=== PATIENT | female | born 1975 | race Caucasian/White ===

== ENCOUNTER → 2016-08-05 | Outpatient (CLI) | payer BC ==
--- NOTE | 2016-08-06 14:23 | MAMMOGRAPHY REPORT ---
BILATERAL DIGITAL SCREENING MAMMOGRAM TOMOSYNTHESIS WITH CAD: 08/05/2016 CLINICAL HISTORY: Routine screening. Patient has no complaints. BASELINE. TECHNIQUE: Breast tomosynthesis in addition to standard 2D mammography was performed. Current study was also evaluated with a Computer Aided Detection (CAD) system. COMPARISON: No prior exams were available for comparison. BREAST COMPOSITION: There are scattered areas of fibroglandular density in both breasts. FINDINGS: There is an oval partially circumscribed and partially obscured 11 mm mass within the right upper outer quadrant, for which ultrasound and possible additional spot compression views are recomm ended. There is a questionable area of architectural distortion within the left medial breast on the tomosynthesis CC images (slice 34/66), which likely represents normal overlapping fibroglandular tis alvin although spot compression tomosynthesis views and possible breast ultrasound are recommended. The remainder of both breasts are negative, without suspicious masses, calcifications, or areas of ar chitectural distortion noted. IMPRESSION: ACR BI-RADS CATEGORY 0: INCOMPLETE EVALUATION: NEED ADDITIONAL IMAGING EVALUATION Right breast mass and questionable left breast architectural distortion, for which additional imaging evaluation is recommended. The patient will be called to schedule an appointment. Approximately 10% of breast cancers are not detected with mammography. A negative mammographic report should not delay biopsy if a clinically suggestive mass is present. Katharine Salinas M.D. /:08/05/2016 16:38:39 Registration Officer: Karmen LINDQUIST(Asher)(M), [facility] letter sent: Addl Imaging 0 BI-RADS Code: ACR BI-RADS Category 0: Incomplete Evaluation: Need Additional Imaging Evaluation
== END | disposition home or self-care (01) ==
LOC: C.MAMM 13:27
PROVIDERS: ATTEND Physician Assistant
DX: Z12.31 Encounter for screening mammogram for malignant neoplasm of breast (principal); N63 Unspecified lump in breast

== ENCOUNTER → 2016-08-13 | Outpatient (CLI) | payer BC ==
--- NOTE | 2016-08-13 16:02 | MAMMOGRAPHY REPORT ---
BILATERAL DIGITAL DIAGNOSTIC MAMMOGRAM TOMOSYNTHESIS AND TARGETED BILATERAL ULTRASOUND: 08/13/2016 CLINICAL HISTORY: Callback from baseline screening mammogram for questionable left breast architectur al distortion and right breast mass. TECHNIQUE: Breast tomosynthesis in addition to standard 2D mammography was performed. Spot compress ion right CC and MLO and left CC 2-D and tomosynthesis images were obtained. COMPARISON: Comparison is made to exam dated: 08/05/2016 mammogram - [facility]. BREAST COMPOSITION: There are scattered areas of fibroglandular density in both breasts. FINDINGS: Spot compression views of the right breast demonstrate a persistent oval partially circumscribed and partially obscured 11 mm mass within the right upper outer quadrant, best seen on the cc view. The p reviously described questionable architectural distortion within the left medial breast on the cc vie w does not persist on the additional images; the tissue in this region has the appearance of normal f ibroglandular tissue on the additional tomosynthesis images. Targeted ultrasound was performed of the right lateral breast in the region of the mammographic mass. In the right breast at 9:00, 5 cm from the nipple, there is an oval circumscribed hypoechoic mass w hich measures 6 x 9 x 4 mm. This likely corresponds with the circumscribed mammographic mass and is probably benign and likely represents a cyst although it is not clearly anechoic and therefore does n ot meet all of the criteria for a cyst although this may be due to the far posterior location. An ov al circumscribed anechoic mass with multiple thin internal septations measuring 1.2 x 0.5 x 0.7 cm is also seen within the right 9:00 periareolar region, which has the appearance of a cyst cluster. A f ew other small cysts were seen during the exam, including a round anechoic benign simple cyst measuri ng 3 x 2 mm in the right 9:00 breast, 3 cm from the nipple. Targeted ultrasound of the left medial b reast in the region of the questionable architectural distortion demonstrates sonographically normal tissue without evidence of a mass or other suspicious sonographic abnormality. IMPRESSION: ACR-BI-RADS CATEGORY 3: PROBABLY BENIGN, TARGETED ULTRASOUND ACR-BI-RADS CATEGORY 3: PRO BABLY BENIGN 1. Oval hypoechoic 9 mm mass in the right breast at 9:00, 5 cm from the nipple, which likely corresp onds with the circumscribed mammographic mass. The mass is probably benign and likely represents a c yst. Recommend follow-up diagnostic tomosynthesis mammograms and possible ultrasound of the right br east in 6 months to confirm stability. At that time, recommend follow-up ultrasound of a 1.2 cm cyst cluster in the right 9:00 periareolar breast. 2. The questionable left breast architectural distortion did not persist on the additional views, wi thout corresponding sonographic abnormality evident. Findings are benign and compatible with normal fibroglandular tissue. The patient has been verbally notified of the results. Approximately 10% of breast cancers are not detected with mammography. A negative mammographic report should not delay biopsy if a clinically suggestive mass is present. Katharine Salinas M.D. ah/:08/13/2016 13:41:03 Weaving Loom Operator: Raya TERRELL)(Oumar), [facility] letter sent: Follow Up Recommended 3 BI-RADS Code: ACR-BI-RADS Category 3: Probably Benign Ultrasound BI-RADS: ACR-BI-RADS Category 3: Pr obably Benign
== END | disposition home or self-care (01) ==
LOC: C.MAMM 12:40
PROVIDERS: ATTEND Physician Assistant
DX: N63 Unspecified lump in breast (principal); N64.9 Disorder of breast, unspecified

== ENCOUNTER → 2016-08-19 | Outpatient (CLI) | payer BC | END | disposition home or self-care (01) | LOC: C.PAPS 10:49 | PROVIDERS: ATTEND Physician Assistant | DX: Z01.419 Encounter for gynecological examination (general) (routine) without abnormal findings (principal) ==

== ENCOUNTER → 2016-09-01 | Outpatient (CLI) | payer BC ==
--- NOTE | 2016-09-01 13:05 | MAMMOGRAPHY REPORT ---
ASPIRATION RIGHT BREAST: 09/01/2016 CLINICAL HISTORY: Right 9:00 periareolar breast mass. PATIENT CONSENT: The procedure and risks of ultrasound-guided cyst aspiration versus biopsy were disc ussed in full with the patient. Both oral and written consents were obtained. PROCEDURE DESCRIPTION: With ultrasound guidance, aseptic technique, and 1% lidocaine as a local anest hetic, the mass of concern in the right 9:00 periareolar breast was aspirated to completion. Benign type light pink fluid was obtained and discarded. Direct pressure was applied to the site immediatel y post procedure and hemostasis was achieved. The patient tolerated the procedure without complicati on. She was given wound care instructions. COMPARISON: Comparison is made to exams dated: 09/01/2016 mammogram, 08/13/2016 ultrasound, 08/13/2016 ma mmogram, and 08/05/2016 mammogram - [facility]. IMPRESSION: ASPIRATION Ultrasound-guided aspiration of the right 9:00 periareolar breast mass. Given that it completely asp irated, it is consistent with a benign cyst. The patient can return to routine annual mammography. Katharine Salinas M.D. /:09/01/2016 09:17:00 Senior Tech Manufacturing Engineering: Franca Reeder, [facility]
--- NOTE | 2016-09-01 13:05 | MAMMOGRAPHY REPORT ---
ASPIRATION RIGHT BREAST: 09/01/2016 CLINICAL HISTORY: Right 9:00 breast mass, 5 cm from the nipple. PATIENT CONSENT: The procedure and risks of ultrasound-guided cyst aspiration versus biopsy were disc ussed in full with the patient. Both oral and written consents were obtained. PROCEDURE DESCRIPTION: With ultrasound guidance, aseptic technique, and 1% lidocaine as a local anest hetic (1% lidocaine to anesthetize the skin and 1% lidocaine with epinephrine to anesthetize the deep er tissues), the mass of concern in the right 9:00 breast, 5 cm from the nipple, was aspirated to com pletion. Benign type light pink fluid was obtained and discarded. Direct pressure was applied to th e site immediately post procedure and hemostasis was achieved. The patient tolerated the procedure w ithout complication. She was given wound care instructions. Postprocedural unilateral mammograms we re obtained; see separate dictation for details. COMPARISON: Comparison is made to exams dated: 09/01/2016 mammogram, 08/13/2016 ultrasound, 08/13/2016 ma mmogram, and 08/05/2016 mammogram - [facility]. IMPRESSION: ASPIRATION Ultrasound guided aspiration of the right 9:00 breast mass, 5 cm from the nipple. Given that it comp letely aspirated, it is consistent with a benign cyst. The aspirated fluid was discarded. The patie nt can return to routine annual mammography. Katharine Salinas M.D. /:09/01/2016 09:11:49 Unarmed Security Officer: Franca Reeder, [facility]
--- NOTE | 2016-09-01 13:05 | MAMMOGRAPHY REPORT ---
UNILATERAL RIGHT DIGITAL DIAGNOSTIC MAMMOGRAM TOMOSYNTHESIS: 09/01/2016 CLINICAL HISTORY: Status post aspiration of two right 9:00 breast cysts. TECHNIQUE: Breast tomosynthesis in addition to standard 2D mammography was performed. Post procedur al right CC and ML views were obtained. COMPARISON: Comparison is made to exams dated: 08/13/2016 mammogram and 08/05/2016 mammogram - [facility]. BREAST COMPOSITION: There are scattered areas of fibroglandular density in the right breast. FINDINGS: Postprocedural mammograms were obtained after aspiration of the 2 right 9:00 breast cysts. The previously seen oval circumscribed mass within the right upper outer quadrant on the recent scr eening mammogram is no longer evident, indicating good correlation between the aspirated sonographic mass and the mammographic mass. No postprocedural hematoma is seen. IMPRESSION: ACR BI-RADS CATEGORY 2: BENIGN The previously seen mammographic mass is no longer evident status post aspiration of 2 cysts in the r ight 9:00 breast, indicating good mammographic-sonographic correlation. There is no mammographic thais dence of malignancy. Return to annual mammogram screening schedule is recommended. Approximately 10% of breast cancers are not detected with mammography. A negative mammographic report should not delay biopsy if a clinically suggestive mass is present. Katharine Salinas M.D. /:09/01/2016 09:22:13 Geropsychologist: Franca Reeder, [facility] BI-RADS Code: ACR BI-RADS Category 2: Benign
== END | disposition home or self-care (01) ==
LOC: C.MAMM 08:26
PROVIDERS: ATTEND Physician Assistant
DX: N63 Unspecified lump in breast (principal)